=== PATIENT | male | born 1950 | race Caucasian/White ===

== ENCOUNTER 2021-04-19 06:04 | Emergency (ER) | payer MEDICARE ==
[2021-04-19] MEDS ORDERED: BUFFERED LIDOCAINE 10 ML SYRINGE SUBQ STA (06:53)
--- NOTE | 2021-04-19 06:56 | ED Physician Documentation ---
PD HPI SKIN - Stated complaint Stated Complaint: FINGER LAC - Chief complaint Chief Complaint: Laceration - History obtained from History obtained from: Patient - Additional information Additional information: Patient comes to the emergency department chief complaint of laceration to left small finger. Patient states it happened yesterday evening when he slipped and caught himself on a glass coffee table, breaking the table and slicing the tip of his finger. Patient states that he was not injured in any other way. He just wrapped the wound up and went to bed, but when he pulled the dressing off this morning, it began to bleed all over again. The patient is on Xarelto. No other complaints at this time. Review of Systems Ten Systems: 10 systems reviewed and negative Constitutional: reports: Reviewed and negative Eyes: reports: Reviewed and negative Ears: reports: Reviewed and negative Nose: reports: Reviewed and negative Throat: reports: Reviewed and negative Cardiac: reports: Reviewed and negative Respiratory: reports: Reviewed and negative GI: reports: Reviewed and negative : reports: Reviewed and negative Skin: reports: Laceration (s) Musculoskeletal: reports: Reviewed and negative Neurologic: reports: Reviewed and negative Psychiatric: reports: Reviewed and negative Endocrine: reports: Reviewed and negative Immunocompromised: reports: Reviewed and negative PD PAST MEDICAL HISTORY - Past Medical History Past Medical History: Yes Cardiovascular: Hypertension, High cholesterol, Atrial flutter Respiratory: None Neuro: None Endocrine/Autoimmune: HyPOthyroidism GI: None : None HEENT: None Psych: None Musculoskeletal: None Derm: None - Past Surgical History Past Surgical History: Yes HEENT: Tonsil/Adenoidectomy - Present Medications Home Medications: Ambulatory Orders Medication Instructions Recorded Confirmed Levothyroxine [Synthroid] 125 mcg PO QDAC 04/19/21 04/19/21 Losartan [Cozaar] 100 mg PO DAILY 04/19/21 04/19/21 Metoprolol Tartrate [Lopressor] 100 mg PO BID 04/19/21 04/19/21 Rivaroxaban [Xarelto] 5 mg PO DAILY 04/19/21 04/19/21 Simvastatin [Zocor] 10 mg PO DAILY 04/19/21 04/19/21 amLODIPine [Norvasc] 5 mg PO DAILY 04/19/21 04/19/21 - Allergies Allergies/Adverse Reactions: Allergies Allergy/AdvReac Type Severity Reaction Status Date / Time Penicillins AdvReac Severe Rash Verified 06/02/21 06:19 - Social History Does the pt smoke?: No Smoking Status: Former smoker Does the pt drink ETOH?: Yes ETOH Use: Wine Does the pt have substance abuse?: No - Immunizations Immunizations are current?: Yes - POLST Patient has POLST: No PD ED PE NORMAL - Vitals Vital signs reviewed: Yes - General General: Alert and oriented X 3, No acute distress - HEENT HEENT: Atraumatic, PERRL, EOMI, Moist mucous membranes - Neck Neck: Supple, no meningeal sign - Cardiac Cardiac: Strong equal pulses - Respiratory Respiratory: No respiratory distress - Derm Derm: Normal color, Warm and dry, No rash, Other (1.5 cm laceration of left small fingertip. Moderate oozing of blood. No pulsatile bleeding.) - Extremities Extremities: No deformity, Other (Full range of motion left small finger) - Neuro Neuro: Alert and oriented X 3 - Psych Psych: Normal mood, Normal affect Results - Vitals Vitals: Oxygen O2 Source Room air Procedures - Laceration (location) L small finger Length in cm: 2.5 Wound type: Curved, Flap, Into subcut fat, Clean. No: Exposure of bone Neurovascular status: Sensory intact, Motor intact, Vascular intact Tendon involvement: No: Tendon Injury Anesthesia: Lidocaine 1% Wound preparation: Hibiclens, Irrigated copiously NS, Wound explored, To the base. No: FB identified Skin layer closure: Nylon, Interrupted, Size #-0 - enter number (5.0), Sutures - enter # (4) Other: Patient tolerated well, No complications, Neurovascular intact, Dressing applied PD MEDICAL DECISION MAKING - ED course Complexity details: considered differential, d/w patient ED course: I discussed wound care with pt, and need for suture removal in 7 days. We have discussed signs of infection and the other usual indications for return. Departure - Departure Disposition: 01 Home, Self Care Clinical Impression: Laceration Condition: Stable Instructions: ED Laceration Ext Sutr Stap Tape Comments: Please keep your wound generally clean and dry. You may let water and soap run over the wound, but please do not rub, scrub, or immerse the wound until sutures are removed. Sutures should be removed in 7 days. This can be done by your primary doctor, urgent care, or the emergency department if unable to be seen at the first 2. If you develop redness and swelling spreading progressively away from the wound, or if the wound splits open and drains pus, you should have it looked at again immediately. Discharge Date/Time: 04/19/21 07:49
[2021-04-19] MEDS ORDERED: BACITRACIN ZINC OINT 1 PACKET TOP STA (07:31)
[2021-04-19 07:45] VITALS: BP 179/80
== END 2021-04-19 07:49 | disposition home or self-care (01) ==
LOC: ED 06:04
DX: S61.217A Laceration without foreign body of left little finger without damage to nail, initial encounter (principal); W01.110A Fall on same level from slipping, tripping and stumbling with subsequent striking against sharp glass, initial encounter; I48.92 Unspecified atrial flutter; Z79.01 Long term (current) use of anticoagulants; I10 Essential (primary) hypertension; Z87.891 Personal history of nicotine dependence
CPT/HCPCS: 12001; 99281; 99282; A9270